=== PATIENT | female | born 2000 | race Two or more races ===

== ENCOUNTER 2020-02-10 17:58 | Observation (INO) | payer MEDICAID ==
[~2020-02-10] VITALS: Ht 165.1 cm; Wt 65.0 kg
[2020-02-10 18:08] VITALS: BP 114/79
[2020-02-10] MEDS ORDERED: PREN1COM10 (18:45)
[2020-02-10] MEDS ORDERED: LURA20TA MT (18:45)
== END 2020-02-10 19:10 | disposition home or self-care (01) ==
LOC: ER 17:58 → 8 EST LDRP 18:26
PROVIDERS: ADMIT Specialist; ATTEND Specialist
DX: O26.892 Other specified pregnancy related conditions, second trimester (principal); O99.612 Diseases of the digestive system complicating pregnancy, second trimester; R19.7 Diarrhea, unspecified; R10.10 Upper abdominal pain, unspecified; Z3A.25 25 weeks gestation of pregnancy
CPT/HCPCS: 59025; 99281; G0378

== ENCOUNTER 2020-02-10 19:20 | Emergency (ER) | payer MEDICAID ==
[~2020-02-10] VITALS: Ht 162.6 cm; Wt 66.0 kg
[~2020-02-10 19:20] MED LIST: LURA20TA MT; PREN1COM10
[2020-02-10] MEDS ORDERED: SODIUM CHLORIDE 0.9% 1,000 ML IV ONE (20:56)
[2020-02-10] MEDS ORDERED: ACETAMINOPHEN 325MG TABLET PO ONE (21:00)
[2020-02-10] MEDS ORDERED: ONDANSETRON HCL 4MG TABLET PO ONE (21:00)
[2020-02-10 21:27] LABS: BASOPHILS % 0.3 % (0.0-2.0); EOSINOPHILS % 0.2 % (0.0-5.0); HEMATOCRIT. 35.5 % (36.0-48.0); HEMOGLOBIN. 12.5 g/dL (12.0-16.0); MEAN CORPUSCULAR HEMOGLOBIN 30.5 pg (28.0-32.0); MEAN CORPUSCULAR VOLUME 86.8 fL (81.0-99.0); MEAN PLATELET VOLUME 7.6 fl (7.4-10.4); MONOCYTES % 7.8 % (2.0-8.0); NEUTROPHILS % 77.7 % (40.0-76.0); PLATELET 178 x1000/uL (130-400); RED BLOOD CELL COUNT 4.09 mill/uL (4.2-5.4); RED CELL DISTRIBUTION WIDTH 13.9 % (11.6-14.6)
[2020-02-10 21:33] LABS: CHLORIDE 105 mEq/L (98-107)
[2020-02-10 21:35] LABS: INR 0.9
[2020-02-10 22:30] VITALS: BP 104/60
== END 2020-02-10 22:30 | disposition home or self-care (01) ==
LOC: ER 19:20
DX: O26.892 Other specified pregnancy related conditions, second trimester (principal); Z3A.25 25 weeks gestation of pregnancy
CPT/HCPCS: 36415; 80053; 83690; 85025; 85610; 93005; 99284; J7030; Q0162